=== PATIENT | female | born 1980 | race Hispanic/Latino ===

== ENCOUNTER 2020-03-19 14:21 | Emergency (ER) | payer BC ==
[~2020-03-19] VITALS: Ht 162.6 cm; Wt 63.6 kg
[~2020-03-19 14:21] MED LIST: DOXYCYCL HYC100 MG PO; LORTAB 5/3255 MG PO; METHERGINE0.2 MG PO; PRENATAL FORMUL PO
[2020-03-19] MEDS ORDERED: PEPCID20 MG PO (18:08)
[2020-03-19] MEDS ORDERED: PREDNISONE20 MG PO (18:08)
[2020-03-19] MEDS ORDERED: BENADRYL 50MG C50 MG PO (18:08)
[2020-03-19 18:30] VITALS: BP 123/57
== END 2020-03-19 18:30 | disposition home or self-care (01) | DRG 607 ==
LOC: ED 14:21
DX: L50.0 Allergic urticaria (principal)

== ENCOUNTER 2020-03-21 08:09 | Emergency (ER) | payer BC ==
[~2020-03-21] VITALS: Ht 162.6 cm; Wt 63.6 kg
[~2020-03-21 08:09] MED LIST changes: +BENADRYL 50MG C50 MG PO; +PEPCID20 MG PO; +PREDNISONE20 MG PO
[2020-03-21] MEDS ORDERED: PREDNISONE20 MG PO (10:09)
[2020-03-21 10:25] VITALS: BP 110/60
== END 2020-03-21 10:25 | disposition home or self-care (01) | DRG 607 ==
LOC: ED 08:09
DX: L50.0 Allergic urticaria (principal); Z11.59 Encounter for screening for other viral diseases
CPT/HCPCS: J1610

== ENCOUNTER 2020-08-11 13:06 | Emergency (ER) | payer BC | END 2020-08-11 13:10 | disposition left against medical advice (07) | DRG 951 | LOC: ED 13:06 → LWOBS 13:10 | DX: Z53.21 Procedure and treatment not carried out due to patient leaving prior to being seen by health care provider (principal) ==